=== PATIENT | female | born 1955 | race Caucasian/White ===

== ENCOUNTER → 2016-05-27 | Outpatient (CLI) | payer BC ==
--- NOTE | 2016-05-27 16:47 | MRI ---
Study: MRI of the Left Shoulder. Indication: ROTATOR TEAR Technique: Multiplanar, multi sequence MRI of the left shoulder was obtained without intravenous contrast. Comparison: None. Findings: Distal clavicular resection and subacromial decompression noted. Moderate subacromial/subdeltoid bursal fluid. Multiple suture anchors greater tuberosity from prior rotator cuff tendon repair. Recurrent full-thickness, full width supraspinatus and infraspinatus tendon tearing with torn tendon fibers retracted to the glenohumeral joint line. Subscapularis tendinosis without full-thickness tear. Teres minor tendon intact. Mild atrophy and grade 1 fatty infiltration supraspinatus and infraspinatus muscle bellies. Long head biceps tenodesis suspected approximately 7.5 cm caudal to the superior margin of the humeral head. Integrity of the tendon at this site is difficult to confirm given at the peripheral field of view. Circumferential degenerative labral tearing. [id number] glenohumeral joint osteoarthritis with a moderate joint effusion. No acute fracture. Impression: Recurrent full-thickness, full width retracted supraspinatus and infraspinatus tendon tearing. Subscapularis tendinosis. Mild atrophy and grade 1 fatty infiltration supraspinatus and infraspinatus muscle bellies. Long head biceps tenodesis. Integrity difficult to confirm given location at the peripheral field of view. Circumferential degenerative labral tearing Mild to moderate glenohumeral joint osteoarthritis. Distal clavicular resection and subacromial decompression noted. Electronically signed by: Kishan Harris MD 05/27/2016 4:46 PM CDT
== END | disposition home or self-care (01) ==
LOC: MRI 08:00
PROVIDERS: ATTEND Orthopaedic Surgery
DX: M75.122 Complete rotator cuff tear or rupture of left shoulder, not specified as traumatic (principal); X58.XXXA Exposure to other specified factors, initial encounter

== ENCOUNTER → 2017-01-02 | Outpatient (CLI) | payer BC ==
--- NOTE | 2017-01-02 12:02 | RAD ---
EXAM DESCRIPTION: Right foot, 3 views CLINICAL HISTORY: PAIN IN RIGHT FOOT FINDINGS/ IMPRESSION: Solid osseous fusion across the metatarsal phalangeal joint great toe. Mild osteoarthritis tarsometatarsal joint of the great toe with joint space narrowing. No acute abnormality No abnormality of the second through fifth metatarsals or phalanges. No advanced osteoarthritis or focal osteochondral lesion No advanced arthrosis of the midfoot or hindfoot. Small dorsal navicular osteophyte ridge at the talonavicular articulation Electronically signed by: Kang Gonzalez MD 01/02/2017 12:01 PM [facility]
== END | disposition home or self-care (01) ==
LOC: RAD 11:08
PROVIDERS: ATTEND Nurse Practitioner Family
DX: M79.671 Pain in right foot (principal)

== ENCOUNTER → 2017-05-22 | Outpatient (CLI) | payer BC ==
--- NOTE | 2017-05-22 08:51 | RAD ---
EXAM DESCRIPTION: Shoulder,Left four Views CLINICAL HISTORY: PAIN IN LEFT SHOULDER COMPARISON: None Available. TECHNIQUE: 4 views of the left shoulder. FINDINGS: There is adequate internal and external rotation. Orthopedic metallic densities are seen in the proximal humerus related to previous rotator cuff surgery. Normal alignment on transscapular Y view and transaxillary view. There is no fracture or dislocation. Degenerative irregularity of the surface of the glenoid is seen on transaxillary view. Deformity of the superolateral femoral head may indicate old Hill-Sachs lesion from previous dislocation. Wide AC joint may be resected or resorbed related to previous trauma. Narrowed acromiohumeral distance measures 4 mm. This suggests chronic rotator cuff tear or rotator cuff atrophy. Cystic changes are seen in the humeral head. There is spurring at the humeral head neck junction. IMPRESSION: Degenerative changes as described. Electronically signed by: Nahun Zacarias MD 05/22/2017 8:50 AM CDT
--- NOTE | 2017-05-22 08:54 | RAD ---
EXAM DESCRIPTION: Hand,Right 3 Views CLINICAL HISTORY: PAIN IN RIGHT HAND COMPARISON: None Available. TECHNIQUE: AP, LATERAL, AND OBLIQUE FINDINGS: Three-view right hand shows no acute fracture or dislocation. Orthopedic hardware is seen in the fingers and at the metacarpal phalangeal joints consistent with previous effusions and joint replacement surgery. Lucencies in some areas may suggest periprosthetic osteolysis. There is no acute appearing focal bone lesion. Degenerative changes are seen in the lateral carpus. Widened space between the scaphoid and lunate is consistent with ligamentous insufficiency. Lucency in the distal radius may be related to old surgery. Lateral view shows irregular radial articular surface with eroded appearance. IMPRESSION: Extensive postsurgical changes. No acute fracture or dislocation. Electronically signed by: Nahun Zacarias MD 05/22/2017 8:52 AM CDT
== END ==
LOC: RAD 08:06
PROVIDERS: ATTEND Orthopaedic Surgery
DX: M79.641 Pain in right hand (principal); M25.512 Pain in left shoulder

== ENCOUNTER → 2018-04-27 | Outpatient (CLI) | payer BC ==
--- NOTE | 2018-04-27 09:39 | CT ---
EXAM DESCRIPTION: Head CLINICAL HISTORY: HEADACHE COMPARISON: None available TECHNIQUE: Noncontrast head CT was performed with routine protocol. FINDINGS: Normal fletcher-white matter differentiation. Ventricles and sulci are normal for age. No high density hemorrhage, focal edema or shift of the midline. No sulcal effacement. Normal orbital contents. Basilar cisterns appear clear. Intact calvarium with no fracture or lytic lesion. Normal aeration of tympanic cavities and mastoid air cells. No fluid levels in the paranasal sinuses. Skull base appears intact. Symmetrical internal auditory canals. Coronal and sagittal reformatted images confirm the findings. IMPRESSION: No acute intracranial pathologic process. This exam was performed according to our departmental dose-optimization program, which includes automated exposure control, adjustment of the mA and/or kV according to patient size and/or use of iterative reconstruction technique. Total DLP equals 859.97 mGycm. Electronically signed by: Nahun Zacarias MD 04/27/2018 9:35 AM CDT
== END ==
LOC: CT 09:30
PROVIDERS: ATTEND Nurse Practitioner Family
DX: R51 Headache (principal)

== ENCOUNTER → 2018-11-06 | Outpatient (CLI) | payer MEDICARE, OTHER ==
--- NOTE | 2018-11-06 14:47 | RAD ---
EXAM DESCRIPTION: Foot,Right 3 Views CLINICAL HISTORY: 63 years, Female, PAIN IN RIGHT FOOT COMPARISON: January 02, 2017 TECHNIQUE: AP, lateral, and oblique views of the right foot FINDINGS: Previous fusion of the first metatarsophalangeal joint is unchanged from prior remote study. A fourth proximal phalangeal fracture has healed since prior examination. Bones are modestly osteopenic. New fracture is not apparent. Modest degenerative changes at the talonavicular articulation and minimal spurring at the plantar surface of the calcaneus noted. IMPRESSION: Previous first metatarsophalangeal fusion and interval healing of fourth proximal phalangeal fracture. Osteopenia and moderate degenerative changes involving the foot without acute new injury. Electronically signed by: Kang Berg MD 11/06/2018 2:45 PM CDT
== END ==
LOC: RAD 07:35
PROVIDERS: ATTEND Orthopaedic Surgery
DX: S92.514D Nondisplaced fracture of proximal phalanx of right lesser toe(s), subsequent encounter for fracture with routine healing (principal); M85.871 Other specified disorders of bone density and structure, right ankle and foot

== ENCOUNTER → 2018-11-07 | Outpatient (CLI) | payer MEDICARE, OTHER ==
--- NOTE | 2018-11-08 09:18 | MRI ---
EXAM DESCRIPTION: Ankle,Right CLINICAL HISTORY: Pain posterior ankle, Achilles tendon area. Hurting while walking [place]. Possible RUPTURE OF ACHILLES TENDON. COMPARISON: Right foot radiograph March 2018.. TECHNIQUE: MRI of the right ankle is performed with multiplanar multi sequence imaging, without intravenous contrast. FINDINGS: BONE AND JOINT: Focal bony enthesial edema within the posterior superior calcaneus. No acute fracture. Small ankle joint effusion. Small effusion at the talonavicular joint. Degenerative subcortical cystic changes at the medial tarsometatarsal articulations. Cartilage: No osteochondral defect within the talar dome. No full-thickness cartilage loss. TENDONS: Very mild focal interstitial tearing suggested along the anterior fibers of the Achilles tendon (approximately 2-3 cm from the calcaneus insertion, for example series 401 image 14) with minimal adjacent edema. No full-thickness Achilles tendon tear or rupture. The plantar fascia is intact without focal edema or thickening. Mild tenosynovial fluid within the retromalleolar peroneus longus/brevis and flexor digitorum longus tendon sheath. The posterior tibialis, flexor hallucis longus, and flexor digitorum longus tendons are otherwise intact. The extensor tendons are intact. Physiologic fluid at Iglesia's knot. LIGAMENTS: Mild indistinction/chronic partial tear of the anterior talofibular and calcaneofibular ligaments. The anterior and posterior tibiofibular ligaments are intact. The medial ankle ligaments including the superficial and deep fibers of the deltoid ligament is intact. The spring ligament is intact. SOFT TISSUES: Mild diffuse edema within Kager fat pad (pre-Achilles fat pad). No solid or cystic mass is seen. IMPRESSION: 1. Right distal Achilles tendon minimal partial-thickness interstitial tearing without tendon retraction. 2. Focal enthesitis at the dorsal calcaneus. 3. Mild inflammation and edema within Kager fat pad. 4. Mild peroneal and flexor digitorum longus tenosynovitis. 5. Chronic partial thickness tears of the anterior talofibular ligament and calcaneofibular ligaments. Electronically signed by: Mj Vences DO 11/08/2018 9:17 AM CDT
== END ==
LOC: MRI 09:04
PROVIDERS: ATTEND Orthopaedic Surgery
DX: M66.861 Spontaneous rupture of other tendons, right lower leg (principal); S93.432D Sprain of tibiofibular ligament of left ankle, subsequent encounter; S93.491D Sprain of other ligament of right ankle, subsequent encounter; M65.871 Other synovitis and tenosynovitis, right ankle and foot

== ENCOUNTER → 2019-07-25 | Outpatient (CLI) | payer MEDICARE, OTHER ==
--- NOTE | 2019-07-25 14:14 | RAD ---
EXAM DESCRIPTION: Pelvis CLINICAL HISTORY: 63 years Female, HIP PAIN COMPARISON: None. FINDINGS: Single AP x-ray view the pelvis shows no evidence of fracture or bony destructive lesion. Degenerative changes at the pubic symphysis and SI joints. Mild narrowing of hip joints. Soft tissue calcifications around the greater trochanter of the proximal right femur. Calcifications in the pelvis are most likely vascular. IMPRESSION: Negative for fracture. Electronically signed by: Nahun Zacarias MD 07/25/2019 2:12 PM CDT
--- NOTE | 2019-07-25 14:16 | RAD ---
EXAM DESCRIPTION: Knee,Left Complete CLINICAL HISTORY: 63 years, Female, KNEE PAIN COMPARISON: None TECHNIQUE: Three views of the left knee standing FINDINGS: Total left knee arthroplasty. Broken staple in the lateral tibia. Anatomic alignment of metallic femoral and tibial components the prosthesis. No complicating fracture. Lateral view shows normal position of the patella. Density above the patella may be fluid in the suprapatellar joint space. Vascular calcifications posterior to the knee. Normal position of the patella on patellar sunrise view. IMPRESSION: Total left knee arthroplasty. Broken staple in the lateral proximal tibia. Electronically signed by: Nahun Zacarias MD 07/25/2019 2:15 PM CDT
--- NOTE | 2019-07-25 14:17 | RAD ---
EXAM DESCRIPTION: Knee,Right Complete CLINICAL HISTORY: 63 years, Female, KNEE PAIN COMPARISON: None TECHNIQUE: Four x-ray views of the right knee standing FINDINGS: Metallic components of the total right knee prosthesis are normally aligned with no complicating fracture. Lateral view shows normal position of the patella. Question suprapatellar joint fluid. [place] patellar view shows normal position of the patella. IMPRESSION: Total right knee arthroplasty. Electronically signed by: Nahun Zacarias MD 07/25/2019 2:16 PM CDT
== END ==
LOC: RAD 07:33
PROVIDERS: ATTEND Orthopaedic Surgery
DX: M25.561 Pain in right knee (principal); M25.562 Pain in left knee; M25.551 Pain in right hip; M25.552 Pain in left hip; T84.218A Breakdown (mechanical) of internal fixation device of other bones, initial encounter; Z96.651 Presence of right artificial knee joint; Z96.652 Presence of left artificial knee joint

== ENCOUNTER → 2019-07-30 | Outpatient (CLI) | payer MEDICARE, OTHER ==
--- NOTE | 2019-07-31 12:03 | NM ---
EXAM DESCRIPTION: Bone Scan, 3Phase: Nuclear Medicine CLINICAL HISTORY: 63 years Female PAIN DUE TO KNEE JOINT PROSTHESIS COMPARISON: Bilateral knee radiographs July 24. TECHNIQUE: Patient injected with 26.6 mCi of technetium 99M MDP IV. Immediate flow gamma camera images were obtained of the bilateral knees from anterior projection. "Blood pool" images were then obtained of the bilateral knees from anterior/posterior projection. Delayed gamma camera images bilateral knees from various planes were obtained 3 hr after injection. FINDINGS: On the flow phase, there is increased activity abutting the medial and lateral aspect of the femoral component of the left total knee prosthesis. This is demonstrated in the early images and persists throughout the flow phase. On the blood pool phase, focal increased activity in the same location of the left knee as on the flow phase. On the delayed phase, focal increased activity in the same location as the first 2 phases. In addition, there is increased activity around the lateral plateau region of the tibial component. No abnormal activity/uptake in the right knee/total knee prosthesis on the study. IMPRESSION: Findings suggest loosening of the left total knee femoral component abutting the outer aspects of the medial and lateral condyle components of the arthroplasty. Also possibility of loosening of the lateral component of the tibial plateau component of the arthroplasty. Electronically signed by: Johnathan Drake MD 07/31/2019 12:02 PM CDT
== END ==
LOC: NM 08:12
PROVIDERS: ATTEND Orthopaedic Surgery
DX: T84.84XA Pain due to internal orthopedic prosthetic devices, implants and grafts, initial encounter (principal); T84.093A Other mechanical complication of internal left knee prosthesis, initial encounter; Z96.652 Presence of left artificial knee joint
CPT/HCPCS: 78315; A9503

== ENCOUNTER → 2019-08-14 | Outpatient (CLI) | payer MEDICARE, OTHER | LOC: LAB.O 16:35 | PROVIDERS: ATTEND Specialist | DX: Z79.891 Long term (current) use of opiate analgesic (principal) ==

== ENCOUNTER → 2019-08-30 | Outpatient (CLI) | payer MEDICARE, OTHER | LOC: LAB.O 09:51 | PROVIDERS: ATTEND Obstetrics & Gynecology | DX: Z01.818 Encounter for other preprocedural examination (principal) ==

== ENCOUNTER → 2019-11-11 | Outpatient (CLI) | payer MEDICARE, OTHER ==
--- NOTE | 2019-11-11 10:24 | RAD ---
Study: 6 Views of the Right Foot and Right Ankle. Indication: ANKLE PAIN Comparison: None. Impression: No acute fracture or malalignment of the right foot or ankle. Osseous fusion first MTP joint, likely postsurgical. Mild plantar calcaneal heel spurring. Millimetric ossifications inferior to both the medial malleolus and lateral malleolus indicating remote avulsive injuries. Mild talonavicular joint osteoarthritis. Osteopenia. If this is a new finding, DEXA scan recommended as well as evaluation for possible osteoporosis treatment. Electronically signed by: Kishan Harris MD 11/11/2019 10:22 AM CDT
== END ==
LOC: RAD 08:11
PROVIDERS: ATTEND Orthopaedic Surgery
DX: M77.31 Calcaneal spur, right foot (principal); M19.071 Primary osteoarthritis, right ankle and foot; M85.871 Other specified disorders of bone density and structure, right ankle and foot; M89.8X7 Other specified disorders of bone, ankle and foot; M61.07 Myositis ossificans traumatica, ankle and foot

== ENCOUNTER → 2019-12-25 | Outpatient (CLI) | payer MEDICARE, OTHER | LOC: LAB.NP 11:39 | PROVIDERS: ATTEND Obstetrics & Gynecology | DX: I10 Essential (primary) hypertension (principal); Z79.01 Long term (current) use of anticoagulants ==

== ENCOUNTER → 2020-02-24 | Outpatient (CLI) | payer MEDICARE, OTHER | LOC: GMAE 14:57 | PROVIDERS: ATTEND Family Medicine | DX: K91.2 Postsurgical malabsorption, not elsewhere classified (principal); E03.9 Hypothyroidism, unspecified; Z79.899 Other long term (current) drug therapy; I10 Essential (primary) hypertension ==